=== PATIENT | male | born 1975 ===

== ENCOUNTER → 2016-12-28 | Outpatient (REF) | payer BC ==
[2016-12-28 14:56] LABS: FERRITIN 83 NG/ML (26-388); PERCENT SATURATION 28.7 % (19.7-37.4); TOTAL IRON BINDING CAPACITY 363 UG/DL (250-450)
[2016-12-30 11:32] LABS: PRETREATED FOLATE FOR RBCFOL 7.7 NG/ML
== END ==
LOC: M LAB REF 13:14
PROVIDERS: ATTEND Nurse Practitioner Adult Health
DX: R53.83 Other fatigue (principal); R94.5 Abnormal results of liver function studies; D56.3 Thalassemia minor